=== PATIENT | male | born 1975 | race Caucasian/White ===

== ENCOUNTER 2018-06-05 11:41 | Day surgery (SDC) | payer BC ==
[~2018-06-05 11:41] MED LIST: Midazolam 1 MG/ML 2 ML SDV IV ONE; Midazolam 1 MG/ML 2 ML SDV ONE; Propofol 200 MG/20 ML SDV IV ONE; Propofol 200 MG/20 ML SDV ONE
[2018-06-05] MEDS ORDERED: Sodium Chloride 0.9% 10 ML Syringe FLUSH PRN (11:45)
[2018-06-05] MEDS ORDERED: Lactated Ringers 1,000 ML IV SCH (11:45)
--- NOTE | 2018-06-05 12:20 | PCM.PN ---
- General Info Date of Service: 06/05/18 - Review of Systems Systems Review Comment:: 42-year-old male with recent history of several days of rectal bleeding referred for colonoscopy. He has never had previous colon evaluation. He denies any change in bowel pattern. He had some mild left groin pain with the bleeding but this pain has now resolved. He is medically stable to proceed with colonoscopy today. I reviewed his recent history and physical and no significant changes are noted. I discussed the proposed colonoscopy with the patient. Risks such as but not limited to bleeding and GI injury reviewed. He agrees to proceed. - Patient Data Med Orders - Current: Current Medications Lactated Ringer's (Ringers, Lactated) 1,000 mls @ 50 mls/hr IV ASDIRECTED JOSEPH Sodium Chloride (Saline Flush) 10 ml FLUSH Q8HR PRN PRN Reason: keep vein open Discontinued Medications Midazolam HCl (Versed 1 Mg/Ml) Confirm Administered Dose 4 mg .ROUTE .STK-MED ONE Stop: 06/05/18 11:08 Propofol (Diprivan 20 Ml) Confirm Administered Dose 400 mg .ROUTE .STK-MED ONE Stop: 06/05/18 11:08 - Problem List Review Problem List Initiated/Reviewed/Updated: Yes - My Orders Last 24 Hours: My Active Orders 06/05/18 11:45 Peripheral IV Care [RC] . DIRECTED Vital Signs [RC] PER UNIT ROUTINE Lactated Ringers [Ringers, Lactated] 1,000 ml IV ASDIRECTED Sodium Chloride 0.9% [Saline Flush] 10 ml FLUSH Q8HR PRN Peripheral IV Insertion Adult [OM.PC] Routine 06/05/18 12:00 Patient to Empty Bladder [RC] ASDIRECTED 06/05/18 12:45 Verify Patient Consent Obtain [RC] ASDIRECTED 06/05/18 Breakfast Nothing Per Oral Diet [DIET] - Assessment Assessment:: Rectal Bleeding - Plan Plan:: Colonoscopy
--- NOTE | 2018-06-05 13:18 | PCM.OPNOTE ---
- General Post-Op/Procedure Note Date of Surgery/Procedure: 06/05/18 Operative Procedure(s): Colonoscopy with Polypectomy Findings: Multiple colon polyps Small Internal Hemorrhoids Pre Op Diagnosis: Rectal Bleeding Post-Op Diagnosis: Colon Polyps. Internal Hemorrhoids Anesthesia Technique: MAC Primary Surgeon: Ishaan Rodgers Pathology: Colon Polyps EBL in mLs: 0 Complications: None Condition: Good
--- NOTE | 2018-06-05 20:29 | OR ---
DATE OF SURGERY: 06/05/2018 SURGEON: Ishaan Rodgers MD PREOPERATIVE DIAGNOSIS: Rectal bleeding. POSTOPERATIVE DIAGNOSIS: Colon polyps and hemorrhoids. OPERATION PERFORMED: Colonoscopy with polypectomy. INDICATIONS FOR SURGERY: This 42-year-old male has a recent history of rectal bleeding over the course of several days. He is referred for his initial colonoscopy. FINDINGS: The patient had no active bleeding seen today. He did have mild internal hemorrhoids which did not appear to be acutely inflamed. The patient also had 4 colon polyps. There was a 5 mm sessile polyp in the sigmoid colon 20 cm from the anal verge, a 7 mm sessile polyp at the splenic flexure, a 15 mm pedunculated polyp in the transverse colon, and a 6 mm sessile polyp at the hepatic flexure. The remainder of the colon otherwise appeared normal. PROCEDURE: The patient was taken to the operating room. He was given intravenous sedation, and with him in the left lateral decubitus position, digital rectal exam was performed showing no rectal masses. The Olympus colonoscope was inserted into the rectum, and retroflexed examination of the rectal canal was performed. The scope was then carefully advanced through the entire length of the colon until the cecum was reached. During insertion of the scope, the above-described polyps were identified. As they were encountered, they were each removed with a cautery snare and retrieved. Once the cecum had been reached, careful examination of the cecum was performed. Cecal identity was confirmed by noting normal internal cecal anatomy including the appendiceal orifice and ileocecal valve. The light was also noted to transilluminate the abdominal wall in the right lower quadrant. After examining the cecum, the scope was slowly withdrawn sequentially re-examining the colonic segments until the entire colon and rectum had been fully examined. Polypectomy sites appeared to be without complication during inspection as the scope was withdrawn, and no other abnormalities were seen. Scope was removed, and the patient was taken from the operating room in satisfactory condition. Estimated blood loss was 0. COMPLICATIONS: None. PROGNOSIS: Good. /[id number]/MODL MTDD
== END 2018-06-05 14:50 | disposition home or self-care (01) ==
LOC: KA.SDS 11:41
PROVIDERS: ATTEND Surgery
DX: K62.5 Hemorrhage of anus and rectum (principal); D12.3 Benign neoplasm of transverse colon; D12.5 Benign neoplasm of sigmoid colon; K64.8 Other hemorrhoids; F17.200 Nicotine dependence, unspecified, uncomplicated; Z79.1 Long term (current) use of non-steroidal anti-inflammatories (NSAID)
CPT/HCPCS: J2250; J2704; J7120

== ENCOUNTER 2020-10-08 16:14 | Emergency (ER) | payer BC ==
--- NOTE | 2020-10-08 16:38 | EDM.PDOC ---
ED HPI GENERAL MEDICAL PROBLEM - General Chief Complaint: Laceration Stated Complaint: SMASHED RING FINGER LT HAND Time Seen by Provider: 10/08/20 16:25 Source of Information: Reports: Patient History Limitations: Reports: No Limitations - History of Present Illness INITIAL COMMENTS - FREE TEXT/NARRATIVE: 44 YO WM PRESENTS TO ER WITH CRUSHING INJURY TO LEFT RING FINGER. PT REPORTS HE WAS AT WORK AND GOT HIS FINGER CAUGHT BETWEEN TO PIECES OF METAL THAT HE WAS WORKING ON. PT REPORTS MINOR BLEEDING AND NO NAIL INJURY. PT REPORTS HE'S FAMILY ENCOURAGED HIM TO COME TO ER FOR EVALUATION AND TO UPDATE HIS TETANUS. PT DENIES SWELLING, ECCHYMOSIS, BUT REPORTS 4/10 PAIN TO FINGER TIP. Onset: Today Duration: Minutes: Location: Reports: Upper Extremity, Left Quality: Reports: Ache Severity: Mild Improves with: Reports: None Worsens with: Reports: None Associated Symptoms: Reports: No Other Symptoms left ring finger Pain Score (Numeric/FACES): 3 - Related Data Allergies Allergy/AdvReac Type Severity Reaction Status Date / Time No Known Drug Allergies Allergy Other Verified 10/08/20 16:28 Seasonal Allergies Allergy Cannot Uncoded 10/08/20 16:28 Remember Home Meds: Home Meds Cetirizine [ZyrTEC] 10 mg PO DAILY PRN 08/07/13 [History] Ibuprofen 800 mg PO Q4H PRN 06/03/18 [History] Mupirocin Oint [Bactroban Oint] 22 gm TOP Q8HR #22 gm 10/08/20 [Rx] Past Medical History Respiratory History: Reports: Sleep Apnea - Past Surgical History Musculoskeletal Surgical History: Reports: Arthroscopic Knee, Other (See Below) Other Musculoskeletal Surgeries/Procedures:: ACL Social & Family History - Tobacco Use Tobacco Use Status *Q: Current Every Day Tobacco User Years of Tobacco use: 20 Packs/Tins Daily: 1 - Caffeine Use Caffeine Use: Reports: Coffee, Energy Drinks, Soda - Recreational Drug Use Recreational Drug Use: No - Living Situation & Occupation Living situation: Reports: Occupation: Employed ED ROS GENERAL - Review of Systems Review Of Systems: See Below Constitutional: Reports: No Symptoms HEENT: Reports: No Symptoms Respiratory: Reports: No Symptoms Cardiovascular: Reports: No Symptoms Endocrine: Reports: No Symptoms GI/Abdominal: Reports: No Symptoms : Reports: No Symptoms Musculoskeletal: Reports: Hand Pain Skin: Reports: No Symptoms Neurological: Reports: No Symptoms Psychiatric: Reports: No Symptoms Hematologic/Lymphatic: Reports: No Symptoms ED EXAM, SKIN/RASH Exam: See Below Exam Limited By: No Limitations General Appearance: Alert, WD/WN, No Apparent Distress Head: Atraumatic, Normocephalic Neck: Normal Inspection, Supple, Non-Tender, Full Range of Motion Respiratory/Chest: No Respiratory Distress, Lungs Clear, Normal Breath Sounds, No Accessory Muscle Use, Chest Non-Tender Cardiovascular: Normal Peripheral Pulses, Regular Rate, Rhythm, No Edema, No Gallop, No JVD, No Murmur, No Rub Back Exam: Normal Inspection, Full Range of Motion, NT Neurological: Alert, Oriented, CN II-XII Intact, Normal Cognition, Normal Gait, Normal Reflexes, No Motor/Sensory Deficits Psychiatric: Normal Affect, Normal Mood Skin: Warm, Dry, Wound/Incision (ABRASION TO LEFT RING FINGER TIP) Course - Vital Signs Last Recorded V/S: Last Vital Signs Temp 98.1 F 10/08/20 16:16 Pulse 84 10/08/20 16:16 Resp 16 10/08/20 16:16 BP 161/102 H 10/08/20 16:16 Pulse Ox 97 10/08/20 16:16 - Radiology Interpretation Free Text/Narrative:: LEFT RING FINGER XRAY- NO FRACTURE Departure - Departure Time of Disposition: 16:51 Disposition: Home, Self-Care 01 Condition: Good Clinical Impression: Contusion, Abrasion - Discharge Information Prescriptions: Mupirocin Oint [Bactroban Oint] 22 gm TOP Q8HR #22 gm Instructions: Crush Injury of the Hand Referrals: Ruth Nicholas MD [Primary Care Provider] - Additional Instructions: 1. DISCHARGE HOME 2. BACTROBAN OINTMENT TO FINGER 3X/DAY X 5 DAYS 3. WOUND CARE INSTRUCTIONS GIVEN 4. FOLLOW UP IN CLINIC/ER FOR WORSENING SYMPTOMS NEEDED Sepsis Event Note (ED) - Evaluation Sepsis Screening Result: No Definite Risk - Focused Exam Vital Signs: Vital Signs Temp Pulse Resp BP Pulse Ox 10/08/20 16:16 98.1 F 84 16 161/102 H 97 - Assessment/Plan Assessment:: 1. LEFT RING FINGER CONTUSION 2. LEFT FINGER TIP ABRASION- WITHOUT LACERATION Plan: 1. DISCHARGE HOME 2. BACTROBAN OINTMENT TO FINGER 3X/DAY X 5 DAYS 3. WOUND CARE INSTRUCTIONS GIVEN 4. FOLLOW UP IN CLINIC/ER FOR WORSENING SYMPTOMS NEEDED
[2020-10-08] MEDS: Diphtheria,Pertussis(Acell),Tetanus Vaccine 0.5 ML Syringe IM ONE (16:41)
--- NOTE | 2020-10-08 17:02 | CR ---
[id number] RAD/RAD Fingers Left EXAM: RAD Fingers Left CLINICAL DATA: TRAUMA COMPARISON: No previous similar exam is available. FINDINGS: No fracture or dislocation is seen. There is no radiopaque foreign body in the soft tissues. There is no air in the soft tissues. There is no cortical thickening or periosteal reaction either. IMPRESSION: NEGATIVE PLAIN FILM EXAM. Deandre Nunez MD 10/08/20 [id number] Thank you for allowing us to participate in the care of your patient.
== END 2020-10-08 17:00 | disposition home or self-care (01) ==
LOC: KA.ED 16:14
DX: S60.042A Contusion of left ring finger without damage to nail, initial encounter (principal); Z72.0 Tobacco use; Z91.09 Other allergy status, other than to drugs and biological substances; Z23 Encounter for immunization; W23.0XXA Caught, crushed, jammed, or pinched between moving objects, initial encounter; Y99.0 Civilian activity done for income or pay
CPT/HCPCS: 73140-F3; 90471; 90715; 99283; 99283-25

== ENCOUNTER 2024-06-11 08:44 | Day surgery (SDC) | payer BC ==
[2024-06-11] MEDS ORDERED: Sodium Chloride 0.9% 10 ML Syringe FLUSH PRN (08:45)
[2024-06-11] MEDS: Lactated Ringers 1,000 ML IV SCH (09:14)
[2024-06-11] MEDS ORDERED: Midazolam 1 MG/ML 2 ML SDV ONE (09:51)
[2024-06-11] MEDS ORDERED: Propofol 200 MG/20 ML SDV ONE (09:51)
== END 2024-06-11 11:33 | disposition home or self-care (01) ==
LOC: KA.SDS 08:44
PROVIDERS: ATTEND Surgery
DX: Z12.11 Encounter for screening for malignant neoplasm of colon (principal); D12.3 Benign neoplasm of transverse colon; D12.5 Benign neoplasm of sigmoid colon; Z86.0100 Personal history of colon polyps, unspecified; Z85.038 Personal history of other malignant neoplasm of large intestine
CPT/HCPCS: 00811; J2250; J2704; J7120